=== PATIENT | male | born 1940 | race Caucasian/White ===

== ENCOUNTER 2022-07-10 16:10 | Inpatient (IN) | payer OTHER ==
[~2022-07-10] VITALS: Ht 172.7 cm; Wt 75.8 kg
[~2022-07-10 16:10] MED LIST: SIMV5 PO; TERA5 PO; UNK MED
[2022-07-10] MEDS ORDERED: TAMS.4ER PO (16:28)
[2022-07-10] MEDS ORDERED: K-Dur10 MEQ (16:28)
[2022-07-10] MEDS ORDERED: Vitamin D1000 UNI1 PO (16:28)
[2022-07-10] MEDS ORDERED: TERA5 PO (16:29)
[2022-07-10] MEDS ORDERED: GABA400 PO (16:29)
[2022-07-10] MEDS ORDERED: DYAZIDE 37.5-21 EACH PO (16:31)
[2022-07-10] MEDS ORDERED: PRAV20 PO (16:32)
[2022-07-10] MEDS ORDERED: B-12 COMPL1000 MCG/2 IM (16:33)
[2022-07-10] MEDS ORDERED: Flonase 0.05% N16 GM (16:33)
[2022-07-11] VITALS (46 sets, daily range): BP systolic 62–135; BP diastolic 38–109
[2022-07-11 01:53] LABS: BASOPHILS ABSOLUTE AUTO 0.03 K/mm3 (0.00-0.23); BASOPHILS PERCENT AUTO 0 % (0-2); EOSINOPHILS ABSOLUTE AUTO 0.12 K/mm3 (0.00-0.68); EOSINOPHILS PERCENT AUTO 2 % (0-6); Hematocrit 34.8 % (37.0-53.0); Hemoglobin 12.2 g/dL (13.5-17.5); IMMATURE GRAN ABSOLUTE AUTO 0.02 K/mm3 (0.00-0.10); IMMATURE GRAN PERCENT AUTO 0 % (0-1); LYMPHOCYTES ABSOLUTE AUTO 0.44 K/mm3 (0.84-5.20); LYMPHOCYTES PERCENT AUTO 6 % (21-46); MONOCYTES PERCENT AUTO 5 % (4-13); Mean Corpuscular HGB 30.6 pg (26.0-34.0); Mean Corpuscular HGB Conc 35.1 g/dL (31.5-36.5); Mean Corpuscular Volume 87 fL (80-100); Mean Platelet Volume 10.3 fL (9.1-12.4); NEUTROPHILS ABSOLUTE AUTO 6.71 K/mm3 (1.96-9.15); NEUTROPHILS PERCENT AUTO 87 % (41-73); Platelet Count 116 K/mm3 (150-400); RDW Standard Deviation 41.1 fL (35.1-46.3); Red Blood Cell Count 3.99 M/mm3 (4.30-5.90); White Blood Cell Count 7.72 K/mm3 (4.00-11.30)
[2022-07-11 02:02] LABS: International Normalized Ratio 1.28; Prothrombin Time Results 13.3 Sec (9.7-11.5)
[2022-07-11 02:05] LABS: Albumin, Blood 2.6 g/dL (3.4-5.0); Albumin/Globulin Ratio 1.1 (0.8-1.8); Bilirubin, Total 5.3 mg/dL (0.1-1.0); Calcium, Blood 7.5 mg/dL (8.5-10.1); Creatinine, Blood 1.23 mg/dL (0.60-1.20); Globulin, Blood 2.4 g/dL (2.2-4.0); Potassium, Blood 3.7 mmol/L (3.5-5.5)
[2022-07-11 04:25] LABS: Source, Urine Clean Catch
[2022-07-11 04:32] LABS: Blood, Urine 2+ (Neg); Glucose Qualitative, Urine Neg (Neg); Ketones, Urine Neg (Neg); Leukocyte Esterase, Urine Neg (Neg); Nitrite, Urine Neg (Neg); Protein, Urine 1+ (Neg); Urobilinogen, Urine 1+ (Normal)
[2022-07-11 05:37] LABS: Bilirubin, Urine 1+ (Neg)
[2022-07-11 05:38] LABS: Appearance, Urine Clear (Clear); Color, Urine Yellow (P-Yellow)
[2022-07-11 05:39] LABS: Bacteria Rare /hpf; Squamous Epithelial Cells Rare /hpf (Few); White Blood Cells, Urine 0-2 /hpf (0-5)
--- NOTE | 2022-07-11 06:41 | NUR ---
PATIENT ADMITTED INTO ICU AT 0120. AOX4, FOLLOWS COMMANDS AND MOVES ALL EXTREMITIES. SR AND LEVOPHED INFUSING TO MAINTAIN MAPS >65. ROOM AIR. PATIENT DENIES N/V, NO BM OVERNIGHT. VOIDING IN URINAL.
--- NOTE | 2022-07-11 12:29 | NUR ---
REASSESSMENT PT HAS BEEN RESTING IN BED THROUGHOUT THE MORNING, EXCEPT TO STAND TO VOID. HIS LEVOPHED WAS TITRATED OFF THIS AM AND BP IS MAINTAINING MAP ABOVE 65. HE HAD HIS MRI AND TOELRATED IT WELL. HE STARTED TO SHIVER AND GET THE CHILLS LATER IN THE MORNING. TEMP WAS 98.8F AT THAT POINT. WARM BLANKETS GIVEN AND IT RESOLVED. PT'S AT THE BEDSIDE AND WAS UPDATED.
--- NOTE | 2022-07-11 14:18 | NUR ---
Pt. is awake in bed and welcomes my visit. Spouse and friend are present. Pt. had been concerned that his admission sheet identified him as hindu. Whne our [facility] volunteer visited earlier, Pt. verbalized a desire to have his admission page updated. This master esthetician requested the ICU nurse leader attempt to update the database regarding the Pts. voodoo affiliation. Established rapport and prayed with the Pt. ICU nurse leader confirmed that the admission page has been updated. Pt. and spouse verbalized gratitude for the spiritual care visit.
--- NOTE | 2022-07-11 14:53 | NUR ---
DR. GARCIA NOTIFIED THAT MRCP HAS BEEN READ AND THAT PT'S IS ANXIOUS TO KNOW WHAT THE PLAN IS REGARDING POSSIBLE TRANSFER. DR. GARCIA SAID SHE WOULD REVIEW THE RESULTS AND THEN TALK TO PT'S OR DISCUSS PLAN WITH NURSE.
--- NOTE | 2022-07-11 17:02 | NUR ---
SHIFT SUMMARY PT HAS REMAINED OFF OF THE PRESSORS TODAY WITH MAP GREATER THAN 65. HE HAD HIS MRCP, WHICH WAS NEGATIVE. RESULTS RELAYED TO PT'S AFTER SPEAKING WITH DR. GARCIA. PLAN IS TO RECHECK BLOOD CULTURES TONIGHT, CHECK LIVER ENZYMES IN THE AM. PT HAS HAD CHILLS OFF AND ON THROUGHOUT THE DAY, TMAX 99.8F. OTHERWISE HAS REMAINED ALERT AND ORIENTED, CLEAR LUNGS, RA, SR, TOLERATING LIQUIDS. CONTINUING TO MONITOR.
--- NOTE | 2022-07-11 19:57 | NUR ---
ASSUMED CARE PT IS A&O X4. SPO2 >92% ON RA, SR, MAP >65. NO C/O CP, SOB, OR NAUSEA. WILL CONTINUE TO MONITOR.
--- NOTE | 2022-07-11 21:22 | NUR ---
ASSUMPTION OF CARE/TRANSFER NOTE THIS RN RECEIVED REPORT FROM FBAIOLA VELOZ IN THE ICU VIA PHONE. PATIENT TRANSFERRED TO PCU AT 2100. PATIENT TRANSFERRED VIA SBA FROM WHEELCHAIR TO BED. ALERT AND ORIENTED FULLY. SYCUAN. ABLE TO MAKE NEEDS KNOWN. BP STABLE, SBP 100-110'S. AFEBRILE. SR ON MONITOR WITH HR 60'S. SPO2 >92% ON RA. BED IN LOWEST POSITION AND CALL LIGHT WITHIN REACH.
[2022-07-12 00:04] VITALS: BP 108/64
[2022-07-12 02:08] LABS: HBSAG SCREEN Negative (Negative); HCV AB Non Reactive (Non Reactive); HEP A AB, IGM Negative (Negative); HEP B CORE AB, IGM Negative (Negative)
[2022-07-12 03:56] VITALS: BP 101/62
--- NOTE | 2022-07-12 04:26 | NUR ---
SHIFT SUMMARY NO ACUTE CHANGES OVERNIGHT. PATIENT [place], BUT ALERT AND ORIENTED FULLY AND ABLE TO MAKE NEEDS KNOWN. BP STABLE. AFEBRILE. SPO2 >92% ON RA. SR ON MONITOR WITH HR 60-70'S. RT SUBCLAVIAN CENTRAL LINE DRESSING C/D/I AND WNL. PATIENT CALLING APPROPRIATELY. SCD'S IN PLACE. SBA TO BATHROOM. SEE ASSESSMENT. BED IN LOWEST POSITION AND CALL LIGHT WITHIN REACH. THIS RN WILL CONTINUE TO MONITOR UNTIL SHIFT CHANGE AT 0700.
[2022-07-12 05:02] LABS: Hematocrit 32.2 % (37.0-53.0); Hemoglobin 11.2 g/dL (13.5-17.5); Mean Corpuscular HGB 29.9 pg (26.0-34.0); Mean Corpuscular HGB Conc 34.8 g/dL (31.5-36.5); Mean Corpuscular Volume 86 fL (80-100); Mean Platelet Volume 10.9 fL (9.1-12.4); Platelet Count 98 K/mm3 (150-400); RDW Coefficient Variation 13.2 % (11.7-14.2); RDW Standard Deviation 41.1 fL (35.1-46.3); Red Blood Cell Count 3.75 M/mm3 (4.30-5.90); White Blood Cell Count 6.23 K/mm3 (4.00-11.30)
[2022-07-12 05:21] LABS: Albumin, Blood 2.2 g/dL (3.4-5.0); Albumin/Globulin Ratio 0.8 (0.8-1.8); Bilirubin, Total 3.8 mg/dL (0.1-1.0); Bun/Creatinine Ratio 18.7 (12.0-20.0); Calcium, Blood 7.4 mg/dL (8.5-10.1); Creatinine, Blood 1.07 mg/dL (0.60-1.20); Globulin, Blood 2.6 g/dL (2.2-4.0); Potassium, Blood 3.2 mmol/L (3.5-5.5); Total Protein, Blood 4.8 g/dL (6.4-8.2)
[2022-07-12 05:40] LABS: BAND PERCENT MAN 2 % (0-8); BASOPHILS PERCENT MAN 0 % (0-2); EOSINOPHILS PERCENT MAN 0 % (0-6); LYMPHOCYTES ABSOLUTE MAN 0.24 K/mm3 (0.84-5.20); LYMPHOCYTES PERCENT MAN 4 % (21-46); MONOCYTES PERCENT MAN 13 % (4-13); NEUTROPHILS ABSOLUTE MAN 5.17 K/mm3 (1.96-9.15); SEG NEUTROPHILS PERCENT MAN 81 % (41-73); TOTAL CELLS COUNTED 100
[2022-07-12 07:31] VITALS: BP 95/53
[2022-07-12 11:24] VITALS: BP 104/56
--- NOTE | 2022-07-12 15:10 | NUR ---
Pt. is awake in bed and welcomes my visit. Pt. is pleasant and displays evidence of energy and engagement as we visit. Facilitate a life review and consider matters of kody and service. Pt. verbalizes being encouraged by the intentional care he has received. Pt. displayed evidence of a lightened mood. Friends arrived. Prayed with the Pt. Pt. verbalized gratitude for the spiritual care visit.
[2022-07-12 16:42] VITALS: BP 116/64
--- NOTE | 2022-07-12 17:14 | NUR ---
TRANSFER NOTE PT IS A&O X4. VSS. SPO2 >92% ON RA. PT DENIES ABDOMINAL PAIN AT THIS TIME. GI MD AT BEDSIDE TO DISCUSS DIAGNOSIS. ZOSYN GTT INFUSING. PT CHANGED TO MEDICAL STATUS. REPORT GIVEN TO ACCEPTING NURSE. PT WHEELED TO SURGICAL UNIT BY PCT AT APPROX @ 0129.
--- NOTE | 2022-07-12 17:50 | NUR ---
1715 to room via wheelchair accompanied by . pt alert, oriented. pt denies any pain or sob. pt states he feels "great". pt eating dinner, denies any needs at this time
[2022-07-12 19:24] VITALS: BP 108/66
[2022-07-13 04:49] LABS: Hematocrit 32.8 % (37.0-53.0); Hemoglobin 11.3 g/dL (13.5-17.5); Mean Corpuscular HGB 29.4 pg (26.0-34.0); Mean Corpuscular HGB Conc 34.5 g/dL (31.5-36.5); Mean Corpuscular Volume 85 fL (80-100); Mean Platelet Volume 10.6 fL (9.1-12.4); Platelet Count 96 K/mm3 (150-400); RDW Coefficient Variation 12.9 % (11.7-14.2); RDW Standard Deviation 40.2 fL (35.1-46.3); Red Blood Cell Count 3.85 M/mm3 (4.30-5.90); White Blood Cell Count 4.99 K/mm3 (4.00-11.30)
[2022-07-13 05:02] VITALS: BP 117/74
[2022-07-13 05:05] LABS: Albumin, Blood 2.1 g/dL (3.4-5.0); Anion Gap 5 mmol/L (6-16); Blood Urea Nitrogen 15 mg/dL (8-24); Bun/Creatinine Ratio 17.2 (12.0-20.0); CO2, Blood 28 mmol/L (21-32); Calcium, Blood 7.9 mg/dL (8.5-10.1); Chloride, Blood 106 mmol/L (98-108); Creatinine, Blood 0.87 mg/dL (0.60-1.20); Glomerular Filtration Rate 87 (60-); Glucose, Blood 92 mg/dL (70-99); Phosphorus, Blood 1.8 mg/dL (2.5-4.9); Potassium, Blood 3.2 mmol/L (3.5-5.5); Sodium, Blood 139 mmol/L (136-145)
--- NOTE | 2022-07-13 05:32 | NUR ---
SHIFT SUMMARY A/O X4- NO PAIN REPORTED THROUGHOUT THE NIGHT. TOLERATED FULL LIQ DIET-NO NAUSEA OR VOMITING, WILL ADVANCE TOLERATED. VOIDING AND PASSING FLATUS. VITAL SIGNS STABLE. PLEASANT AND COOPERATIVE W/ CARE NO ACUTE CHANGES THROUGHOUT SHIFT.
--- NOTE | 2022-07-13 06:42 | NUR ---
SHIFT SUMMARY A/O X4- IND IN THE ROOM. NO PAIN REPORTED THROUGHOUT SHIFT. TOLERATING FULL LIQUID INTAKE, NO NAUSEA OR VOMITING. VOIDING AND PASSING FLATUS. NO ACUTE CHANGES THROUGHOUT SHIFT. WILL REPORT TO ONCOMING RN.
[2022-07-13 07:08] VITALS: BP 104/72
--- NOTE | 2022-07-13 17:08 | NUR ---
SHIFT SUMMARY NO ACUTE CHANGES THIS SHIFT. PT IS A/O X4, INDEPENDENT IN ROOM. VSS. TOLERATING REGULAR DIET, VOIDING APPROPRIATELY. CALLS APPROPRIATELY. IV FLUIDS AND ABX INFUSING PER EMAR. PT STATES ABX SAVED HIS LIFE AND HE FEELS EXTREMELY GRATEFUL FOR HOSPITAL STAFF. VERY PLEASANT. CALL LIGHT IN REACH. WILL GIVE REPORT TO WINDLASSER RN.
[2022-07-13 20:02] VITALS: BP 120/69
[2022-07-14 00:17] VITALS: BP 104/61
[2022-07-14 05:36] VITALS: BP 100/62
[2022-07-14 05:39] LABS: BASOPHILS ABSOLUTE AUTO 0.02 K/mm3 (0.00-0.23); BASOPHILS PERCENT AUTO 0 % (0-2); EOSINOPHILS ABSOLUTE AUTO 0.24 K/mm3 (0.00-0.68); EOSINOPHILS PERCENT AUTO 5 % (0-6); Hematocrit 31.2 % (37.0-53.0); IMMATURE GRAN ABSOLUTE AUTO 0.02 K/mm3 (0.00-0.10); IMMATURE GRAN PERCENT AUTO 0 % (0-1); LYMPHOCYTES ABSOLUTE AUTO 0.86 K/mm3 (0.84-5.20); LYMPHOCYTES PERCENT AUTO 19 % (21-46); MONOCYTES ABSOLUTE AUTO 1.02 K/mm3 (0.16-1.47); MONOCYTES PERCENT AUTO 22 % (4-13); Mean Corpuscular HGB 29.8 pg (26.0-34.0); Mean Corpuscular HGB Conc 35.3 g/dL (31.5-36.5); Mean Corpuscular Volume 85 fL (80-100); Mean Platelet Volume 10.2 fL (9.1-12.4); NEUTROPHILS ABSOLUTE AUTO 2.49 K/mm3 (1.96-9.15); NEUTROPHILS PERCENT AUTO 54 % (41-73); Platelet Count 118 K/mm3 (150-400); RDW Coefficient Variation 12.8 % (11.7-14.2); RDW Standard Deviation 39.9 fL (35.1-46.3); Red Blood Cell Count 3.69 M/mm3 (4.30-5.90); White Blood Cell Count 4.65 K/mm3 (4.00-11.30)
[2022-07-14 05:58] LABS: Albumin, Blood 2.1 g/dL (3.4-5.0); Albumin/Globulin Ratio 0.8 (0.8-1.8); Bilirubin, Total 1.7 mg/dL (0.1-1.0); Calcium, Blood 7.7 mg/dL (8.5-10.1); Creatinine, Blood 0.83 mg/dL (0.60-1.20); Globulin, Blood 2.7 g/dL (2.2-4.0); Potassium, Blood 3.4 mmol/L (3.5-5.5); Total Protein, Blood 4.8 g/dL (6.4-8.2)
--- NOTE | 2022-07-14 06:41 | NUR ---
SHIFT SUMMARY: PT ADMIT FOR SEVERE SEPSIS. A&OX4, VERY PLEASANT AND COOPERATIVE, [place]. NO ACUTE CHANGES THIS SHIFT, VSS. POSITIVE BC W/ Q6 UNASYN ORDERS, POWERGLIDE IN L UPPER ARM, CONTINUOUS FLUIDS TO MAINTAIN PATENCY. PT INDEPENDANT IN ROOM.
[2022-07-14 06:59] VITALS: BP 100/61
[2022-07-14 15:25] VITALS: BP 120/81
[2022-07-14 15:26] VITALS: BP 120/81
--- NOTE | 2022-07-14 15:43 | NUR ---
SHIFT SUMMARY PT HAD NO ACUTE CHANGES THIS SHIFT. A/OX4, VSS, INDEPENDENT IN ROOM. TOLERATING REGULAR DIET AND VOIDING APPROPRIATELY. USES CALL LIGHT APPROPRIATELY. WILL GIVE REPORT TO JOINT RUNNER RN.
[2022-07-14 19:17] VITALS: BP 121/69
[2022-07-15 03:59] VITALS: BP 127/71
--- NOTE | 2022-07-15 04:00 | NUR ---
PT SITTING UP IN BED FOR 0400 VITALS, REPORTS SLEPT WELL TILL 0230. REQUESTED PAPER AND PEN. PLEASANT AND FRIENDLY.
--- NOTE | 2022-07-15 04:54 | NUR ---
SHIFT SUMMARY: PT STABLE THIS SHIFT, NO ACUTE CHANGES. SLEPT T/O NIGHT. VSS, A&OX4, DENIES PAIN, N/V, N/T, OR SOB. POWERGLIDE TO LEFT UPPER ARM, NS RUNNING AT 15ML/HR TO MAINTAIN PATENCY. DRESSING C/D/I. INDEPENDANT IN ROOM/ TO BATHROOM. POSSIBLE PLANS FOR DISCHARGE TODAY.
[2022-07-15 07:33] VITALS: BP 124/60
[2022-07-15 12:48] VITALS: BP 130/68
[2022-07-15] MEDS ORDERED: VISBIOME 112.51 EACH PO (12:53)
[2022-07-15] MEDS ORDERED: AMOCLA875 PO (12:55)
--- NOTE | 2022-07-15 13:10 | NUR ---
DC'D HOME, DC INSTRUCTIONS GIVEN, VERBALIZED UNDERSTANDING, BELONGINGS GIVEN TO PT, DC'D HOME WITH .
[2022-07-17] MEDS ORDERED: OXYB5 PO (21:43)
== END 2022-07-15 13:12 | disposition home or self-care (01) | DRG 871 ==
LOC: ER 16:10 → ICUW 16:11 → PCU 07-11 15:04 → ICUW 07-11 17:56 → PCU 07-11 21:01 → SURS 07-12 17:24
PROVIDERS: Emergency Medicine; Internal Medicine; ADMIT Internal Medicine
PROC: 02HV33Z Insertion of Infusion Device into Superior Vena Cava, Percutaneous Approach (ICD-10-PCS; principal; 2022-07-11)
PROC: B548ZZA Ultrasonography of Superior Vena Cava, Guidance (ICD-10-PCS; 2022-07-11)
PROC: 3E033XZ Introduction of Vasopressor into Peripheral Vein, Percutaneous Approach (ICD-10-PCS; 2022-07-11)
PROC: 4A143B0 Monitoring of Venous Pressure, Central, Percutaneous Approach (ICD-10-PCS; 2022-07-11)
PROC: 3E03329 Introduction of Other Anti-infective into Peripheral Vein, Percutaneous Approach (ICD-10-PCS; 2022-07-11)
DX: A41.50 Gram-negative sepsis, unspecified (principal); R65.21 Severe sepsis with septic shock; K83.09 Other cholangitis; I10 Essential (primary) hypertension; E80.6 Other disorders of bilirubin metabolism; N40.0 Benign prostatic hyperplasia without lower urinary tract symptoms; G62.9 Polyneuropathy, unspecified; K76.89 Other specified diseases of liver; E87.6 Hypokalemia; E83.39 Other disorders of phosphorus metabolism; R74.01 Elevation of levels of liver transaminase levels; E78.00 Pure hypercholesterolemia, unspecified; R74.8 Abnormal levels of other serum enzymes; Z98.890 Other specified postprocedural states; Z79.899 Other long term (current) drug therapy; Z90.49 Acquired absence of other specified parts of digestive tract; Z79.52 Long term (current) use of systemic steroids
CPT/HCPCS: 36415; 36556; 71045; 74160; 74181; 76705; 80053; 80069; 80074; 81001; 83605; 83880; 85025; 85027; 85610; 87040; 87077; 87186; 93005; 93010; 93306; 96361; 96365-59; 96366; 96366-59; 96368; 96376; 99291-25; A9270; C1751; G0378; J0295; J2543; J7030; J7050; J7060; Q9967

== ENCOUNTER 2022-12-27 16:39 | Emergency (ER) | payer OTHER ==
[~2022-12-27] VITALS: Ht 172.7 cm; Wt 77.1 kg
[~2022-12-27 16:39] MED LIST changes: +AMOCLA875 PO; +B-12 COMPL1000 MCG/2 IM; +DYAZIDE 37.5-21 EACH PO; +Flonase 0.05% N16 GM; +GABA400 PO; +K-Dur10 MEQ; +OXYB5 PO; +PRAV20 PO; +TAMS.4ER PO; +VISBIOME 112.51 EACH PO; +Vitamin D1000 UNI1 PO
[2022-12-27 17:21] VITALS: BP 116/65
[2022-12-27 17:39] LABS: BASOPHILS ABSOLUTE AUTO 0.02 K/mm3 (0.00-0.23); BASOPHILS PERCENT AUTO 0 % (0-2); EOSINOPHILS PERCENT AUTO 0 % (0-6); Hematocrit 35.5 % (37.0-53.0); Hemoglobin 12.3 g/dL (13.5-17.5); IMMATURE GRAN ABSOLUTE AUTO 0.01 K/mm3 (0.00-0.10); IMMATURE GRAN PERCENT AUTO 0 % (0-1); LYMPHOCYTES ABSOLUTE AUTO 0.59 K/mm3 (0.84-5.20); LYMPHOCYTES PERCENT AUTO 10 % (21-46); MONOCYTES ABSOLUTE AUTO 0.51 K/mm3 (0.16-1.47); MONOCYTES PERCENT AUTO 9 % (4-13); Mean Corpuscular HGB 29.9 pg (26.0-34.0); Mean Corpuscular HGB Conc 34.6 g/dL (31.5-36.5); Mean Corpuscular Volume 86 fL (80-100); Mean Platelet Volume 9.7 fL (9.1-12.4); NEUTROPHILS ABSOLUTE AUTO 4.74 K/mm3 (1.96-9.15); NEUTROPHILS PERCENT AUTO 81 % (41-73); Platelet Count 141 K/mm3 (150-400); RDW Coefficient Variation 12.6 % (11.7-14.2); Red Blood Cell Count 4.11 M/mm3 (4.30-5.90); White Blood Cell Count 5.87 K/mm3 (4.00-11.30)
[2022-12-27 17:59] LABS: Albumin/Globulin Ratio 0.9 (0.8-1.8); Bilirubin, Total 0.7 mg/dL (0.1-1.0); Bun/Creatinine Ratio 16.1 (12.0-20.0); Calcium, Blood 8.1 mg/dL (8.5-10.1); Creatinine, Blood 1.43 mg/dL (0.60-1.20); Globulin, Blood 3.5 g/dL (2.2-4.0); Potassium, Blood 3.9 mmol/L (3.5-5.5); Total Protein, Blood 6.5 g/dL (6.4-8.2)
[2022-12-27 21:48] LABS: Source, Urine Clean Catch
[2022-12-27 21:51] LABS: Bilirubin, Urine Neg (Neg); Blood, Urine 5+ (Neg); Glucose Qualitative, Urine Neg (Neg); Ketones, Urine 2+ (Neg); Leukocyte Esterase, Urine 3+ (Neg); Nitrite, Urine Neg (Neg); Protein, Urine 2+ (Neg); Specific Gravity, Urine 1.015 (1.003-1.022); Urobilinogen, Urine 1+ (Normal)
[2022-12-27 21:52] LABS: Appearance, Urine Hazy (Clear); Color, Urine Yellow (P-Yellow)
[2022-12-27 21:58] LABS: Bacteria Mod /hpf; Red Blood Cells, Urine TNTC /hpf (0-2); Squamous Epithelial Cells Not Seen /hpf (Few)
== END 2022-12-27 22:13 | disposition home or self-care (01) ==
LOC: ER 16:39 → MEDS 17:11 → ER 22:13
PROVIDERS: Physician Assistant
DX: N39.0 Urinary tract infection, site not specified (principal); R79.89 Other specified abnormal findings of blood chemistry; C61 Malignant neoplasm of prostate; N40.0 Benign prostatic hyperplasia without lower urinary tract symptoms; I10 Essential (primary) hypertension; E78.00 Pure hypercholesterolemia, unspecified; Z79.899 Other long term (current) drug therapy
CPT/HCPCS: 51701; 80053; 81001; 85025; 87077; 87086; 87186; 96360-59; 99284-25; J7030

== ENCOUNTER 2025-02-15 09:54 | Emergency (ER) | payer OTHER ==
[~2025-02-15] VITALS: Ht 170.2 cm; Wt 88.5 kg
[2025-02-15 10:30] LABS: BASOPHILS ABSOLUTE AUTO 0.02 K/mm3 (0.00-0.23); BASOPHILS PERCENT AUTO 0 % (0-2); EOSINOPHILS ABSOLUTE AUTO 0.10 K/mm3 (0.00-0.68); EOSINOPHILS PERCENT AUTO 2 % (0-6); Hematocrit 36.9 % (37.0-53.0); Hemoglobin 12.7 g/dL (13.5-17.5); IMMATURE GRAN ABSOLUTE AUTO 0.02 K/mm3 (0.00-0.10); IMMATURE GRAN PERCENT AUTO 0 % (0-1); LYMPHOCYTES ABSOLUTE AUTO 1.02 K/mm3 (0.84-5.20); LYMPHOCYTES PERCENT AUTO 21 % (21-46); MONOCYTES ABSOLUTE AUTO 0.56 K/mm3 (0.16-1.47); MONOCYTES PERCENT AUTO 11 % (4-13); Mean Corpuscular HGB Conc 34.4 g/dL (31.5-36.5); Mean Corpuscular Volume 86 fL (80-100); NEUTROPHILS ABSOLUTE AUTO 3.24 K/mm3 (1.96-9.15); NEUTROPHILS PERCENT AUTO 65 % (41-73); NRBC ABSOLUTE 0.00 K/mm3 (0.00-0.02); NRBC Auto 0.0 /100 WBC (0.0-0.2); Platelet Count 157 K/mm3 (150-400); RDW Coefficient Variation 12.8 % (11.7-14.2); RDW Standard Deviation 39.6 fL (35.1-46.3)
[2025-02-15] MEDS ORDERED: NS 500 ML IV SCH ×2 (10:55→12:35)
[2025-02-15 10:59] LABS: Alanine Aminotransfer (ALT/SGP 22.0 U/L (12-78); Albumin, Blood 3.1 g/dL (3.4-5.0); Albumin/Globulin Ratio 1.1 (0.8-1.8); Anion Gap 9.0 mmol/L (3-11); Aspartate Aminotrans (AST/SGOT 26.0 U/L (12-37); Bilirubin, Total 0.6 mg/dL (0.1-1.0); Blood Urea Nitrogen 20.0 mg/dL (8-24); CO2, Blood 29.0 mmol/L (21-32); Calcium, Blood 8.4 mg/dL (8.5-10.1); Chloride, Blood 99.0 mmol/L (98-108); Creatinine, Blood 0.98 mg/dL (0.60-1.20); Globulin, Blood 2.7 g/dL (2.2-4.0); Glucose, Blood 111.0 mg/dL (70-99); Potassium, Blood 4.0 mmol/L (3.5-5.5); Sodium, Blood 133.0 mmol/L (136-145); Total Protein, Blood 5.8 g/dL (6.4-8.2)
[2025-02-15] MEDS ORDERED: MECL25 PO (12:47)
[2025-02-15 12:56] VITALS: BP 98/46
== END 2025-02-15 12:58 | disposition home or self-care (01) ==
LOC: ER 09:54
PROVIDERS: Student in an Organized Health Care Education/Training Program
DX: H81.393 Other peripheral vertigo, bilateral (principal); Z79.899 Other long term (current) drug therapy; I10 Essential (primary) hypertension
CPT/HCPCS: 80053; 83735; 83880; 84484; 85025; 93005; 93010; 96360; 99284-25; J7030